=== PATIENT | female | born 1970 | race Two or more races ===

== ENCOUNTER → 2024-10-10 | Outpatient (CLI) | payer OTHER, SELFPAY ==
--- NOTE | 2024-10-10 17:00 | XR_ITS ---
Examination: MRI brain head with intravenous contrast TECHNIQUE: Sagittal axial coronal MR brain images post intravenous administration 80 cc gadolinium Date and time: October 10, 2024 1718 hours INDICATIONS: Dizziness pressure in the head numbness in the hands beginning 6 weeks ago FINDINGS: Ventricles are normal in size and configuration No mass effect upon the ventricular system No effacement sulcal markings No pituitary macro or microadenoma No abnormal enhancing cerebellar or cerebral lesions IMPRESSION: No abnormal enhancing cerebellar or cerebral lesions MRI brain without contrast follow up would best assess for demyelinating disease, as clinically warranted
== END | disposition home or self-care (01) ==
PROVIDERS: PCP Internal Medicine; Referring Provider Internal Medicine; Visit Provider Internal Medicine
DX: R42 Dizziness and giddiness (principal)
CPT/HCPCS: 70552; A9579